=== PATIENT | male | born 1960 | race Caucasian/White ===

== ENCOUNTER 2021-04-08 01:13 | Inpatient (IN) ==
[2021-04-08] MEDS ORDERED: dexAMETHasone**PF** 10 MG/ML VIAL IV ONE (01:26)
[2021-04-08] MEDS ORDERED: SODIUM CHLORIDE 0.9% 1000ML 1,000 ML IV STA (01:26)
--- NOTE | 2021-04-08 01:51 | Emergency Department Note ---
History of Present Illness General Chief complaint: Respiratory Problems Stated complaint: O2 IS LOW,COUGH Time Seen by Provider: 04/08/21 01:19 History of Present Illness This 60-year-old presents to the ER complaining of covid sx Location: Generalized Quality: Hard to breathe Severity: Moderate Duration: Past 2 days Timing: Symptoms started 10 to 14 days ago Context: Patient's pulse ox was low and came in Modifying factors: better with rest; worse with activity Patient is unvaccinated for COVID. Patient states he has been sick for almost 2 weeks. is sick also. Home sats were in the 70s. He does not smoke. No lung disease. Patient's gave him ivermectin. Patient planes of gener alized illness cough shortness of breath. Patient is requesting I speak to his and her recommendations of treatment for him. I spoke to the Maxine at [phone]. She is requesting no remdesivir no ventilator for treatment. She wants to be called immediately if we are recommending any new treatments. She was fine with oxygen and the steroids. She informing that she gave her ivermectin. She is also requesting no COVID-vaccine. Home Medications Medication Instructions Recorded Confirmed Type buspirone 10 mg tablet 10 mg PO BID 04/08/21 04/08/21 History citalopram 40 mg tablet 40 mg PO DAILY 04/08/21 04/08/21 History Allergies Allergy/AdvReac Type Severity Reaction Status Date / Time Penicillins Allergy Severe RASH Verified 04/08/21 02:20 Past Med/Surg History Medical History Anxiety Surgical History (Updated 04/08/21 @ 01:48 by Kelsie Mckeon PA-C) No pertinent past surgical history Social History Smoking Status: Never smoker Feels Safe at Home: Yes Review of Systems A total of 10 systems reviewed and were otherwise negative Physical Exam Vital Signs Vital Signs - 24 hr 04/08/21 01:14 04/08/21 01:55 04/08/21 01:59 Temperature 36.9 C Temperature Source Oral Pulse Rate 73 Pulse Rate [Finger] 71 Respiratory Rate 16 Respiratory Effort / Characteristics Non-Labored Spontaneous Non-Labored Spontaneous Respiratory Depth Normal Normal Respiratory Pattern Regular Blood Pressure 110/65 Blood Pressure Mean 80 Blood Pressure Position Sitting Pulse Oximetry 84 L 97 Oxygen Delivery Method Room Air Nasal Cannula Oxygen Flow Rate 2 Sepsis Recent Fever Within 48 Hours No Sepsis New/Unexplained Change in Mental Status N/A Sepsis Action Taken by Nursing No Action Required Oxygen Flow Rate - Titration Pulse Oximetry Post Tiitration 04/08/21 02:00 Temperature Temperature Source Pulse Rate Pulse Rate [Finger] Respiratory Rate Respiratory Effort / Characteristics Respiratory Depth Respiratory Pattern Blood Pressure Blood Pressure Mean Blood Pressure Position Pulse Oximetry 84 L Oxygen Delivery Method Room Air Nasal Cannula Oxygen Flow Rate 0 Sepsis Recent Fever Within 48 Hours Sepsis New/Unexplained Change in Mental Status Sepsis Action Taken by Nursing Oxygen Flow Rate - Titration 2 Pulse Oximetry Post Tiitration 99 VITALS: Vitals are noted on the nurse's note and reviewed by myself. Vital signs pulse ox 84% on room air which improved on 3 L of nasal cannula to the mid 90s GENERAL: White male coughing appears short of breath, SKIN: The skin was without rashes, erythema, edema, or bruising. There is no tenting of the skin. Capillary reflex less than 2 seconds. HEAD: Normocephalic atraumatic. EARS: External auditory canals clear, EYES: Pupils equal round and reactive to light and accommodation. Conjunctivae without injection, sclerae without icterus. Extraocular movements intact. NOSE: Patent, turbinates without inflammation or discharge. MOUTH: Mucous membranes moist. Pharynx without erythema or exudate. Uvula midline. Airway patent. Tongue does not deviate. NECK: Supple without nuchal rigidity. No lymphadenopathy. No thyromegaly. Cervical spine is nontender. No JVD. HEART: Regular rate and rhythm . LUNGS: Mild diffuse end expiratory wheezes, w/o or rhonchi. No retractions or accessory muscle use. ABDOMEN: Positive bowel sounds x 4. Normal tympanic percussion. Soft, nontender, without masses or organomegaly. Rojas sign negative. No guarding or rebound tenderness. No CVA tenderness MUSCULOSKELETAL: No muscle atrophy, erythema, or edema noted. NEURO: Patient was alert and oriented to person place and time. Normal sensation to light and sharp touch. No focal neurological deficits. Course Administered Medications Discontinued Medications Dexamethasone Sodium Phosphate (DexamethasonePf 10 Mg/Ml Vial) 6 mg IV NOW ONE Stop: 04/08/21 01:27 Last Admin: 04/08/21 01:54 Dose: 6 mg Documented by: [id number] Sodium Chloride (Nss 1000ml) 1,000 mls @ 999 mls/hr IV .Q1H1M STA Stop: 04/08/21 02:26 Last Admin: 04/08/21 01:54 Dose: 999 mls/hr Documented by: [id number] Medical Decision Making Medical Records Attestation: I reviewed the patient's medical records. Home Medications Current Medication List: was personally reviewed by me Laboratory Data Attestation: I reviewed the patient's lab results. Result diagrams: 04/08/21 01:48 04/08/21 01:48 Lab Results 04/08/21 04/08/21 04/08/21 Range/Units 01:30 01:48 01:48 WBC 7.93 (4.8-10.8) K/uL RBC 4.11 L (4.7-6.1) M/uL Hgb 13.4 L (14.0-18.0) g/dL POC Hgb (14.0-18.0) g/dl Hct 38.1 L (42-52) % POC Hct (42-52) % MCV 92.7 (80-100) fL MCH 32.6 (25-34) pg MCHC 35.2 (32-36) g/dL RDW Std Deviation 41.3 (36.4-46.3) fL RDW Coeff of Wyatt 12.1 (11.5-14.5) % Plt Count 264 (130-400) K/uL MPV 9.4 (7.4-10.4) fL Immature Gran % (Auto) 0.4 % Neut % (Auto) 72.0 % Lymph % (Auto) 14.8 % [place] % (Auto) 12.1 % Eos % (Auto) 0.1 % Baso % (Auto) 0.6 % Neut # (Auto) 5.71 (1.4-6.5) K/uL Lymph # (Auto) 1.17 L (1.2-3.4) K/uL [place] # (Auto) 0.96 H (0.11-0.59) K/uL Eos # (Auto) 0.01 (0-0.5) K/uL Baso # (Auto) 0.05 (0-0.2) K/uL Immature Gran # (Auto) 0.03 H (0.00-0.02) K/uL PT (9.0-12.0) Seconds INR (0.9-1.1) APTT (21.0-31.0) Seconds PTT Ratio POC pH (7.35-7.45) POC pCO2 (35-46) mmHg POC pO2 (80-95) mmHg POC HCO3 (19-24) ruben/L POC Total CO2 (24-31) mmol/L POC Base Excess (-9-1.8) ruben/L POC ABG O2 Sat (90-95) % POC Sodium (135-144) mmol/L Sodium 130 L (136-145) mmol/L POC Potassium (3.3-5.0) mmol/L Potassium 3.6 (3.5-5.1) mmol/L Chloride 95 L (98-107) mmol/L Carbon Dioxide 26 (21-32) mmol/L Anion Gap 9 (3-11) BUN 7 (6-23) mg/dl Creatinine 0.52 L (0.6-1.4) mg/dl Est Cr Clr Drug Dosing 174.6 ml/min Est GFR ( Amer) 132.5 ml/min Est GFR (Non-Af Amer) 114.3 ml/min BUN/Creatinine Ratio 13.5 (10-20) Glucose 127 H (70-99) mg/dl Lactate (0.4-2.0) mmol/L Calcium 8.3 L (8.5-10.1) mg/dl Total Bilirubin 0.9 (0.2-1.0) mg/dl AST 52 H (13-39) U/L ALT 44 (7-52) U/L Alkaline Phosphatase 45 (34-104) U/L Total Protein 7.0 (6.0-8.3) gm/dl Albumin 3.2 L (3.4-5.0) gm/dl Globulin 3.8 (2.5-4.0) gm/dl Albumin/Globulin Ratio 0.8 L (0.9-2) SARS-CoV-2 (PCR) POSITIVE A* (Negative) Influenza Type A (PCR) Negative (Neg) Influenza Type B (PCR) Negative (Neg) RSV (RT-PCR) Negative (Neg) 04/08/21 04/08/21 04/08/21 Range/Units 01:48 01:48 01:55 WBC (4.8-10.8) K/uL RBC (4.7-6.1) M/uL Hgb (14.0-18.0) g/dL POC Hgb 12.6 L (14.0-18.0) g/dl Hct (42-52) % POC Hct 37 L (42-52) % MCV (80-100) fL MCH (25-34) pg MCHC (32-36) g/dL RDW Std Deviation (36.4-46.3) fL RDW Coeff of Wyatt (11.5-14.5) % Plt Count (130-400) K/uL MPV (7.4-10.4) fL Immature Gran % (Auto) % Neut % (Auto) % Lymph % (Auto) % [place] % (Auto) % Eos % (Auto) % Baso % (Auto) % Neut # (Auto) (1.4-6.5) K/uL Lymph # (Auto) (1.2-3.4) K/uL [place] # (Auto) (0.11-0.59) K/uL Eos # (Auto) (0-0.5) K/uL Baso # (Auto) (0-0.2) K/uL Immature Gran # (Auto) (0.00-0.02) K/uL PT 11.8 (9.0-12.0) Seconds INR 1.2 H (0.9-1.1) APTT 33.1 H (21.0-31.0) Seconds PTT Ratio 1.3 POC pH 7.54 H* (7.35-7.45) POC pCO2 32 L (35-46) mmHg POC pO2 85 (80-95) mmHg POC HCO3 27 H (19-24) ruben/L POC Total CO2 28 (24-31) mmol/L POC Base Excess 4.0 H (-9-1.8) ruben/L POC ABG O2 Sat 98.0 H (90-95) % POC Sodium 130 L (135-144) mmol/L Sodium (136-145) mmol/L POC Potassium 3.6 (3.3-5.0) mmol/L Potassium (3.5-5.1) mmol/L Chloride (98-107) mmol/L Carbon Dioxide (21-32) mmol/L Anion Gap (3-11) BUN (6-23) mg/dl Creatinine (0.6-1.4) mg/dl Est Cr Clr Drug Dosing ml/min Est GFR ( Amer) ml/min Est GFR (Non-Af Amer) ml/min BUN/Creatinine Ratio (10-20) Glucose (70-99) mg/dl Lactate 0.7 (0.4-2.0) mmol/L Calcium (8.5-10.1) mg/dl Total Bilirubin (0.2-1.0) mg/dl AST (13-39) U/L ALT (7-52) U/L Alkaline Phosphatase (34-104) U/L Total Protein (6.0-8.3) gm/dl Albumin (3.4-5.0) gm/dl Globulin (2.5-4.0) gm/dl Albumin/Globulin Ratio (0.9-2) SARS-CoV-2 (PCR) (Negative) Influenza Type A (PCR) (Neg) Influenza Type B (PCR) (Neg) RSV (RT-PCR) (Neg) Imaging Data Attestation: I personally reviewed and interpreted this imaging study as follows: MDM Narrative Prior records/ancillary studies reviewed. Triage Nursing notes reviewed. Additional history obtained from nursing and . The patient's history was concerning for cold symptoms Differential diagnosis: Etiologies such as viral syndrome, pharyngitis, Covid, sepsis, bacteremia, bronchitis, allergies, otitis, pneumonia, influenza, as well as others were entertained. ER treatment provided: IV fluids, Decadron. gave ivermectin. is refusing remdesivir and ventilator and COVID- vaccine. On reassessment the patient felt better. Diagnostics interpreted by me: The labs revealed positive COVID ABG was reviewed Imaging studies: Chest x-ray concern for multifocal pneumonia with positive COVID per my i nterpretation Consultation: A consultation was placed with hospitalist. Case was reviewed and informed of the 's wishes. Medicine will evaluate for admission. This appears to be consistent with COVID he was hypoxic. Patient was placed on oxygen and improved. He was given steroids. Patient and are declining any other current treatment options. The gave the patient ivermectin. She did inform me of this. I notified the hospitalist of this. Medicine will evaluate. Patient will be admitted. By the evaluation outlined above emergent etiologies such as otitis, meningitis, urinary tract infection, sepsis, bacteremia, as well as others were deemed relatively unlikely. The pt informed about the findings as listed above. All questions were answered and pleased with the treatment. The chart was completed utilizing In[employer] Speech voice recognition software. Grammatical errors, random word insertions, pronoun errors, and incomplete sentences are an occassional consequence of this system due to software limitations, ambient noise, and hardware issues. Any formal questions or concerns about the content, text, or information contained within the body of this dictation should be directly addressed to the physician restaurant assistant for clarification. Impression & Plan COVID-19, Hypoxemia Discharge Plan Visit Data Chief Complaint: Respiratory Problems Stated Complaint: O2 IS LOW,COUGH ED Provider: Carla Corral ED Midlevel Provider: Kelsie Mckeon Discharge Problem: COVID-19, Hypoxemia Patient Disposition: Admitted As Inpatient Condition: Fair Forms Stand Alone Forms: My [facility] - It's what's in store Prescriptions Prescriptions: No Action citalopram 40 mg tablet 40 mg PO DAILY RF: 0 buspirone 10 mg tablet 10 mg PO BID RF: 0 Referrals Referrals: Carroll Wyatt MD [Primary Care Provider] -
[2021-04-08 02:02] LABS: Hematocrit (blood only) 38.1 % (42-52); Hemoglobin 13.4 g/dL (14.0-18.0); Mean Corpuscular Hemoglobin 32.6 pg (25-34); Mean Corpuscular Hgb Conc 35.2 g/dL (32-36); Mean Corpuscular Volume 92.7 fL (80-100); Mean Platelet Volume 9.4 fL (7.4-10.4); Platelet Count 264 K/uL (130-400); RDW Coefficient of Variation 12.1 % (11.5-14.5); RDW Standard Deviation 41.3 fL (36.4-46.3); Red Blood Count 4.11 M/uL (4.7-6.1); White Blood Count 7.93 K/uL (4.8-10.8)
[2021-04-08 02:08] LABS: iSTAT Arterial Blood Gas HCO3 27 meg/L (19-24); iSTAT Arterial Blood Gas pCO2 32 mmHg (35-46); iSTAT Arterial Blood Gas pH 7.54 (7.35-7.45); iSTAT Arterial Blood Gas pO2 85 mmHg (80-95); iSTAT Carbon Dioxide 28 mmol/L (24-31); iSTAT Hematocrit 37 % (42-52); iSTAT Hemoglobin 12.6 g/dl (14.0-18.0); iSTAT Potassium 3.6 mmol/L (3.3-5.0); iSTAT Sodium 130 mmol/L (135-144)
[2021-04-08 02:19] LABS: INR 1.2 (0.9-1.1); Partial Thromboplastin Ratio 1.3; Partial Thromboplastin Time 33.1 Seconds (21.0-31.0); Prothrombin Time 11.8 Seconds (9.0-12.0)
[2021-04-08 02:22] LABS: Basophils # (auto) 0.05 K/uL (0-0.2); Basophils % (auto) 0.6 %; Eosinophils # (auto) 0.01 K/uL (0-0.5); Eosinophils % (auto) 0.1 %; Immature Granulocytes # (auto) 0.03 K/uL (0.00-0.02); Immature Granulocytes % (auto) 0.4 %; Lymphocytes # (auto) 1.17 K/uL (1.2-3.4); Lymphocytes % (auto) 14.8 %; Monocytes # (auto) 0.96 K/uL (0.11-0.59); Monocytes % (auto) 12.1 %; Neutrophils # (auto) 5.71 K/uL (1.4-6.5)
[2021-04-08 02:27] LABS: Albumin Globulin Ratio 0.8 (0.9-2); Albumin Level 3.2 gm/dl (3.4-5.0); BUN Creatinine Ratio 13.5 (10-20); Bilirubin,Total 0.9 mg/dl (0.2-1.0); Calcium 8.3 mg/dl (8.5-10.1); Creatinine Clr Calc Pharmacy 174.6 ml/min; Est GFR (African American) 132.5 ml/min; Est GFR (Non-African American) 114.3 ml/min; Globulin 3.8 gm/dl (2.5-4.0); Potassium 3.6 mmol/L (3.5-5.1)
[2021-04-08 02:28] LABS: Influenza A virus by PCR Negative (Neg); Influenza B virus by PCR Negative (Neg); RSV by PCR Negative (Neg)
[2021-04-08 02:32] LABS: SARS CoV2 RNA(COVID-19) InHosp POSITIVE (Negative)
[2021-04-08 02:55] LABS: Troponin I 0.07 ng/ml (0-0.04)
--- NOTE | 2021-04-08 04:59 | History and Physical Report ---
DATE OF ADMISSION: 04/08/2021. CHIEF COMPLAINT: Shortness of breath. HISTORY OF PRESENT ILLNESS: This is 60-year-old male with a past medical history significant for type 2 diabetes, not on any medication; hyperlipidemia, not on any medications; gastroesophageal reflux disease; obesity; sleep apnea, presents with shortness of breath and cough. The patient says he was exposed to COVID on and on 03/24/2021 he started to develop symptoms. Initially, the symptoms were not bad .. Last time he had fever was last Tuesday and was getting more progressively short of breath and today he took the dog out for a walk and when he came back, he was very short of breath and checked his oxygen, it was 77%, and later is was fluctuating from 90 to low 80s, which prompted him to come to the ER. Tonight, he took a dose of Ivermectin. The patient's does not want to give any COVID vaccine and does not want to give him any remdesivir and the patient agrees for that, agree for steroids. The patient is more than 10 days from the start of his symptoms. Complains of cough and shortness of breath. Denies any body aches. No loss of appetite. No headaches, no nausea, no vomiting, no abdominal pain, no diarrhea. Ambulating fine. No chest pain, no runny nose, no sore throat. Currently, resting comfortably. His oxygen was 84% when he came in. With oxygen supplementation, he is resting comfortably and hemodynamically stable. ALLERGIES: PENICILLIN. PAST MEDICAL HISTORY: As mentioned above. PAST SURGICAL HISTORY: Colonoscopy, cystoscopy, EGDs, uvula surgery for sleep apnea, knee arthroscopy, nasal polyp, excision of cataracts, repair of inguinal hernia, repair of nasal septum, right shoulder arthroscopy, VSD repair at [facility]. MEDICATIONS: The patient is on buspirone 10 mg p.o. daily, citalopram 40 mg p.o. daily. FAMILY HISTORY: Significant for mother has diabetes, father has COPD. SOCIAL HISTORY: , no smoking, alcohol rare, no drug use. REVIEW OF SYSTEMS: As per HPI. Rest of the review of systems is negative. PHYSICAL EXAMINATION: GENERAL: The patient is of moderate build, not in acute distress. VITAL SIGNS: Temperature 36.9, pulse 71, respiratory rate 16, blood pressure 110/65, oxygen 84% on room air. HEENT: Pupils equal, round, reactive to light. Oral mucosa moist. NECK: No JVD, no neck masses. CARDIOVASCULAR: S1 and S2 heard. Regular rate and rhythm. No murmur, no gallop. RESPIRATORY SYSTEM: Normal AP diameter. No accessory muscle use. No wheezing, no crackles. ABDOMEN: Soft, bowel sounds present, nontender, no distention. CENTRAL NERVOUS SYSTEM: Cranial nerves II-XII grossly intact, nonfocal. EXTREMITIES: No edema, no erythema. LABORATORY DATA: WBC 7.9, hemoglobin 13.4, hematocrit 38.1, platelets 264. PT 11.8, INR 1.2, APTT 33.1, pH of 7.5, pCO2 of 32, pO2 of 85, bicarbonate 27, oxygen 98%. Sodium 130, potassium 3.6, chloride 95, bicarbonate 26, BUN 7, creatinine 0.5, serum glucose 127. Lactate 0.7, calcium 8.3, total bilirubin 0.9, AST 52, ALT 42, alkaline phosphatase 45. Troponin I less than 0.07. SARS-CoV-2 PCR positive. Influenza A and B negative. RSV PCR negative. IMAGING DATA: Chest x-ray, bilateral COVID pneumonia seen. EKG: Normal sinus rhythm at a rate of 71, no significant change was found. ASSESSMENT AND PLAN: This is a 60-year-old male who presents with COVID pneumonia. 1. COVID pneumonia: Symptoms started on 03/24/2021. Currently, requiring oxygen. The patient is out of 10 days to give remdesivir, but anyway, the patient and the patient's do not want patient to give any remdesivir or to be put on ventilator. Will continue IV steroids, inhalers and nebs p.r.n. oxygen supplementation and closely monitor in the med tele. Follow the CRP levels. 2. Mild elevation of troponin: Possibly demand ischemia. Follow the serial enzymes. If needed, will consider consulting Cardiology. 3. History of diabetes: Currently not on any medication. Follow HbA1c level. Placed on insulin sliding scale. The patient is getting Decadron. 4. Hyponatremia: Possibly mild dehydration. Getting gentle fluids. Follow the repeat labs. 5. History of anxiety and depression: Continue buspirone and citalopram. 6. History of sleep apnea: Status post uvula surgery long time back. Not on cpap or oxygen as per . 7. Hyperlipidemia: Not on any medication currently. 8. Deep venous thrombosis prophylaxis: Lovenox. DISPOSITION: Closely monitor in the med tele. PT/OT prior to discharge. Social service to help with discharge planning. Job ID: [id number] [email or web address]
[2021-04-08] MEDS ORDERED: SODIUM CHLORIDE 0.9% 1000ML 1,000 ML IV SCH (07:05)
[2021-04-08] MEDS ORDERED: LEVALBUTEROL HCL 1.25 MG/3 ML NEB NEB PRN (07:05)
[2021-04-08] MEDS ORDERED: NITROGLYCERIN SL 0.4 MG/TAB TAB SL PRN (07:05)
[2021-04-08] MEDS ORDERED: ALBUTEROL HFA 8 GM INHALER INH PRN (07:05)
[2021-04-08] MEDS ORDERED: ACETAMINOPHEN 325 MG TAB PO PRN (07:05)
--- NOTE | 2021-04-08 07:29 | XRay Report ---
XR chest 1V portable CLINICAL HISTORY: Fever. Shortness of breath COMPARISON STUDY: No previous studies for comparison. TECHNIQUE: 1 view of the chest FINDINGS: Single frontal view of the chest demonstrates the heart to be enlarged. Patchy interstitial and alveo lar opacities are present bilaterally. The findings are most characteristic of a viral type pneumonit is. Covid 19 pneumonia should be excluded. There is no evidence for pleural effusion. There is no ne dence for vascular congestion. There is no acute osseous pathology. IMPRESSION: Patchy interstitial and alveolar opacities bilaterally characteristic of a viral type pne umonitis and probable early Covid 19 pneumonia. ACT 112: Negative or not required by law. Electronically signed by: Jhonny Newberry M.D. 04/08/2021 7:28 AM
--- NOTE | 2021-04-08 08:20 | Electrocardiogram Report ---
Test Reason : Blood Pressure : / mmHG Vent. Rate : 071 BPM Atrial Rate : 071 BPM P-R Int : 140 ms QRS Dur : 086 ms QT Int : 404 ms P-R-T Axes : 045 009 041 degrees QTc Int : 439 ms Normal sinus rhythm Normal ECG When compared with ECG of 27-AUG-2013 09:41, No significant change Confirmed by Jose Oakes ([id number]) on 04/08/2021 8:20:06 AM Referred By: REFERRED SELF Confirmed By:Jose Oakes
--- NOTE | 2021-04-08 08:28 | Electrocardiogram Report ---
Test Reason : Blood Pressure : / mmHG Vent. Rate : 071 BPM Atrial Rate : 071 BPM P-R Int : 160 ms QRS Dur : 086 ms QT Int : 406 ms P-R-T Axes : 059 006 025 degrees QTc Int : 441 ms Normal sinus rhythm Normal ECG When compared with ECG of 08-APR-2021 01:29, No significant change was found Confirmed by Jose Oakes ([id number]) on 04/08/2021 8:27:17 AM Referred By: REFERRED SELF Confirmed By:Jose Oakes
[2021-04-08 08:43] LABS: Basophils # (auto) 0.04 K/uL (0-0.2); Basophils % (auto) 0.5 %; Hematocrit (blood only) 38.4 % (42-52); Hemoglobin 13.4 g/dL (14.0-18.0); Immature Granulocytes # (auto) 0.02 K/uL (0.00-0.02); Immature Granulocytes % (auto) 0.3 %; Lymphocytes # (auto) 0.79 K/uL (1.2-3.4); Lymphocytes % (auto) 10.2 %; Mean Corpuscular Hemoglobin 32.4 pg (25-34); Mean Corpuscular Hgb Conc 34.9 g/dL (32-36); Mean Corpuscular Volume 92.8 fL (80-100); Mean Platelet Volume 9.6 fL (7.4-10.4); Monocytes # (auto) 0.54 K/uL (0.11-0.59); Monocytes % (auto) 6.9 %; Neutrophils # (auto) 6.38 K/uL (1.4-6.5); Neutrophils % (auto) 82.1 %; Platelet Count 258 K/uL (130-400); RDW Coefficient of Variation 12.2 % (11.5-14.5); RDW Standard Deviation 41.2 fL (36.4-46.3); Red Blood Count 4.14 M/uL (4.7-6.1); White Blood Count 7.77 K/uL (4.8-10.8)
[2021-04-08] MEDS: busPIRone 5 MG TAB PO SCH ×2 (09:02→20:50)
[2021-04-08] MEDS: CITALOPRAM 40 MG TAB PO SCH (09:02)
[2021-04-08] MEDS: ENOXAPARIN INJ 40 MG/0.4 ML SYR SQ SCH (09:03)
[2021-04-08] MEDS: FLUTICASONE FUROATE 100MCG 14 PUFFS/INHALER INH SCH ×2 (09:03→20:50)
[2021-04-08 09:20] LABS: Creatinine Clr Calc Pharmacy 181.6 ml/min; Est GFR (African American) 134.6 ml/min; Est GFR (Non-African American) 116.1 ml/min; Estimated Average Glucose 137 mg/dl; Hemoglobin A1C 6.4 % (4.5-5.6); Magnesium 2.2 mg/dl (1.7-2.4); Potassium 4.1 mmol/L (3.5-5.1)
[2021-04-08 09:31] LABS: Troponin I 0.05 ng/ml (0-0.04)
[2021-04-08] MEDS: INSULIN ASPART PER UNIT SC SCH ×4 (09:42→20:50)
[2021-04-08] MEDS: dexAMETHasone 6 MG in SYRINGE 0 ML IV SCH (11:41)
--- NOTE | 2021-04-08 23:44 | Communication Note ---
Date of Service: April 08, 2021 Pt was seen and examined. Lying in bed with no acute distress. Currently on 2L nasal canula. CXR showed patchy interstitial and alveolar opacities bilaterally characteristic of a viral type pneumonitis and probable early Covid 19 pneumonia. Continue Dexamethasone incentive spirometry and flutter maxwell. Patient and family declined remdesivir and he does not meet criteria as well due to onset of symptoms. Continue osygen supplement. monitor closely. MD Shyla
[2021-04-09] MEDS: ENOXAPARIN INJ 40 MG/0.4 ML SYR SQ SCH (07:52)
[2021-04-09] MEDS: CITALOPRAM 40 MG TAB PO SCH (07:53)
[2021-04-09] MEDS: busPIRone 5 MG TAB PO SCH ×2 (07:53→19:20)
[2021-04-09] MEDS: FLUTICASONE FUROATE 100MCG 14 PUFFS/INHALER INH SCH ×2 (07:53→19:17)
[2021-04-09] MEDS: INSULIN ASPART PER UNIT SC SCH ×4 (08:11→20:32)
[2021-04-09] MEDS: dexAMETHasone 6 MG in SYRINGE 0 ML IV SCH (11:04)
--- NOTE | 2021-04-09 14:40 | Electrocardiogram Report ---
Test Reason : Blood Pressure : / mmHG Vent. Rate : 063 BPM Atrial Rate : 063 BPM P-R Int : 154 ms QRS Dur : 096 ms QT Int : 432 ms P-R-T Axes : 042 009 029 degrees QTc Int : 442 ms Normal sinus rhythm Normal ECG When compared with ECG of 08-APR-2021 03:11, No significant change was found Confirmed by Jose Oakes ([id number]) on 04/09/2021 2:40:31 PM Referred By: REFERRED SELF Confirmed By:Jose Oakes
--- NOTE | 2021-04-09 23:15 | Hospitalist Progress Note ---
Date of Service April 09, 2021 Assessment & Plan (1) COVID-19: Plan: Present on admission with SOB and cough Covid 19 pneumonia Testing positive for COVID 19 Unvaccinated CXR showed Patchy interstitial and alveolar opacities bilaterally characteristic of a viral type pneumonitis and probable early Covid 19 pneumonia. IV dexametasone started Did not meet criteria for Remdesivir due to symtoms onset since new year theodore and pt did not want it as well Continue IV Dexamethasome and oxygen supplement Continue Incentive spirometry and flutter valve Will monitor inflammatory marker Continue monitor closely Mild elevation of troponin Possibly demand ischemia due to hypoxia from covid 19 Troponin on admission 0.07 then trending down to 0.05 denies any chest pain EKG showed no acute intracranial abnormality History of diabetes A1c 6.4 on 04/10/21 Not on any diabetes med. Continue insulin sliding scale Hyponatremia: Na on admission 130, then improved to 133 received IVF Continue monitor BMP History of anxiety and depression: Continue buspirone and citalopram. History of sleep apnea: Status post uvula surgery long time back. Not on cpap or oxygen as per . Deep venous thrombosis prophylaxis: Lovenox. Admission and Anticipated Discharge Date Admission Date: April 08, 2021 Subjective Pt was seen and examined for SOB due to COVID 19 Lying in bed with no acute distress Pt said that his breathing is much better Denies any chest pain,palpitation,dizziness and SOB Review of Systems Review of Systems: All systems reviewed & are unremarkable except as noted in Subjective Physical Exam Physical Exam: General- No acute distress Head- atraumatic Eyes- PERRL, EOMI, ENT- oropharynx clear Neck- supple, no JVD Lungs- +Diminished BS Heart- regular rhythm; no murmur Abdomen- normal bowel sounds, soft, nontender Extremities- no calf tenderness Neuro- alert, oriented x 3; PERRL, EOMI; no facial palsy; no dysarthria Skin- warm & dry Results & Data Results & Data ([facility]) Vital Signs (Past 12 Hours) Vital Signs Temp Pulse Resp BP BP Pulse Ox 04/09/21 23:06 36.6 C 81 20 163/85 H 92 04/09/21 19:10 36.8 C 53 L 20 169/75 H 94 04/09/21 15:17 36.8 C 53 L 20 162/76 H 95
[2021-04-10] MEDS: INSULIN ASPART PER UNIT SC SCH ×4 (09:16→20:04)
[2021-04-10] MEDS: FLUTICASONE FUROATE 100MCG 14 PUFFS/INHALER INH SCH ×2 (09:27→19:33)
[2021-04-10] MEDS: CITALOPRAM 40 MG TAB PO SCH (09:27)
[2021-04-10] MEDS: busPIRone 5 MG TAB PO SCH ×2 (09:27→19:54)
[2021-04-10] MEDS: ENOXAPARIN INJ 40 MG/0.4 ML SYR SQ SCH (09:28)
[2021-04-10 11:22] LABS: Hematocrit (blood only) 37.5 % (42-52); Hemoglobin 12.9 g/dL (14.0-18.0); Mean Corpuscular Hemoglobin 32.1 pg (25-34); Mean Corpuscular Hgb Conc 34.4 g/dL (32-36); Mean Corpuscular Volume 93.3 fL (80-100); Mean Platelet Volume 9.5 fL (7.4-10.4); Platelet Count 368 K/uL (130-400); RDW Coefficient of Variation 12.3 % (11.5-14.5); RDW Standard Deviation 42.1 fL (36.4-46.3); Red Blood Count 4.02 M/uL (4.7-6.1); White Blood Count 13.48 K/uL (4.8-10.8)
[2021-04-10 11:50] LABS: BUN Creatinine Ratio 26.8 (10-20); Calcium 8.3 mg/dl (8.5-10.1); Creatinine Clr Calc Pharmacy 162.2 ml/min; Est GFR (African American) 128.5 ml/min; Est GFR (Non-African American) 110.9 ml/min; Potassium 4.1 mmol/L (3.5-5.1)
[2021-04-10] MEDS: dexAMETHasone 6 MG in SYRINGE 0 ML IV SCH (12:05)
[2021-04-10] MEDS: CHOLECALCIFEROL 1,000 UNITS 25 MCG TAB PO SCH (14:34)
[2021-04-10] MEDS ORDERED: Nursing to Pharmacy Communication SCH (17:30)
--- NOTE | 2021-04-10 23:50 | Hospitalist Progress Note ---
Date of Service April 10, 2021 Assessment & Plan (1) COVID-19: Plan: Present on admission with SOB and cough Covid 19 pneumonia Testing positive for COVID 19 Unvaccinated CXR showed Patchy interstitial and alveolar opacities bilaterally characteristic of a viral type pneumonitis and probable early Covid 19 pneumonia. IV dexametasone started Did not meet criteria for Remdesivir due to symtoms onset since new year theodore and pt did not want it as well Continue IV Dexamethasome and oxygen supplement Continue Incentive spirometry and flutter valve inflammatory marker CRP trending down from 22 to 5 Will obdulio off oxygen supplement Consider 2 step exercise on discharge Continue monitor closely Mild elevation of troponin Possibly demand ischemia due to hypoxia from covid 19 Troponin on admission 0.07 then trending down to 0.05 denies any chest pain EKG showed no acute intracranial abnormality History of diabetes A1c 6.4 on 04/10/21 Not on any diabetes med. Continue insulin sliding scale Hyponatremia: Na on admission 130, then improved to 135 today received IVF Continue monitor BMP History of anxiety and depression: Continue buspirone and citalopram. History of sleep apnea: Status post uvula surgery long time back. Not on cpap or oxygen as per . Deep venous thrombosis prophylaxis: Lovenox. Admission and Anticipated Discharge Date Admission Date: April 08, 2021 Subjective Pt was seen and examined for SOB due to COVID 19 Lying in bed with no acute distress Pt said that his breathing is much better He is only on 1L [place] and oxygen sat above 93% Denies any chest pain,palpitation,dizziness and SOB Review of Systems Review of Systems: All systems reviewed & are unremarkable except as noted in Subjective Physical Exam Physical Exam: General- No acute distress Head- atraumatic Eyes- PERRL, EOMI, ENT- oropharynx clear Neck- supple, no JVD Lungs- +Diminished BS Heart- regular rhythm; no murmur Abdomen- normal bowel sounds, soft, nontender Extremities- no calf tenderness Neuro- alert, oriented x 3; PERRL, EOMI; no facial palsy; no dysarthria Skin- warm & dry Results & Data Results & Data ([facility]) Vital Signs (Past 12 Hours) Vital Signs Temp Pulse Pulse Resp BP Pulse Ox 04/10/21 23:34 44 L 04/10/21 23:04 37 C 47 L 20 158/73 H 95 04/10/21 18:41 37.1 C 49 L 18 168/70 H 94 04/10/21 16:00 48 L 04/10/21 14:59 36.9 C 51 L 18 166/71 H 95
[2021-04-11] MEDS: busPIRone 5 MG TAB PO SCH ×2 (08:13→18:44)
[2021-04-11] MEDS: FLUTICASONE FUROATE 100MCG 14 PUFFS/INHALER INH SCH ×2 (08:13→18:44)
[2021-04-11] MEDS: ENOXAPARIN INJ 40 MG/0.4 ML SYR SQ SCH (08:13)
[2021-04-11] MEDS: CITALOPRAM 40 MG TAB PO SCH (08:13)
[2021-04-11] MEDS: CHOLECALCIFEROL 1,000 UNITS 25 MCG TAB PO SCH (08:13)
[2021-04-11] MEDS: INSULIN ASPART PER UNIT SC SCH ×4 (08:17→20:48)
[2021-04-11] MEDS: dexAMETHasone 6 MG in SYRINGE 0 ML IV SCH (11:15)
--- NOTE | 2021-04-12 00:15 | Hospitalist Progress Note ---
Date of Service April 11, 2021 Assessment & Plan (1) COVID-19: Plan: Present on admission with SOB and cough Covid 19 pneumonia Testing positive for COVID 19 Unvaccinated CXR showed Patchy interstitial and alveolar opacities bilaterally characteristic of a viral type pneumonitis and probable early Covid 19 pneumonia. IV dexametasone started Did not meet criteria for Remdesivir due to symtoms onset since new year theodore and pt did not want it as well Continue IV Dexamethasome and oxygen supplement Continue Incentive spirometry and flutter valve inflammatory marker CRP trending down from 22 to 5 Will obdulio off oxygen supplement Consider 2 step exercise on discharge Continue monitor closely Mild elevation of troponin Possibly demand ischemia due to hypoxia from covid 19 Troponin on admission 0.07 then trending down to 0.05 denies any chest pain EKG showed no acute intracranial abnormality History of diabetes A1c 6.4 on 04/10/21 Not on any diabetes med. Continue insulin sliding scale Hyponatremia: Na on admission 130, then improved to 135 today received IVF Continue monitor BMP History of anxiety and depression: Continue buspirone and citalopram. History of sleep apnea: Status post uvula surgery long time back. Not on cpap or oxygen as per . Deep venous thrombosis prophylaxis: Lovenox. Admission and Anticipated Discharge Date Admission Date: April 08, 2021 Subjective Pt was seen and examined for SOB due to COVID 19 Lying in bed with no acute distress Pt said that his breathing is much better Early today his oxygen dropped when trying to walk to the bathroom Denies any chest pain,palpitation,dizziness and SOB Review of Systems Review of Systems: All systems reviewed & are unremarkable except as noted in Subjective Physical Exam Physical Exam: General- No acute distress Head- atraumatic Eyes- PERRL, EOMI, ENT- oropharynx clear Neck- supple, no JVD Lungs- +Diminished BS Heart- regular rhythm; no murmur Abdomen- normal bowel sounds, soft, nontender Extremities- no calf tenderness Neuro- alert, oriented x 3; PERRL, EOMI; no facial palsy; no dysarthria Skin- warm & dry Results & Data Results & Data ([facility]) Vital Signs (Past 12 Hours) Vital Signs Temp Pulse Pulse Resp BP BP Pulse Ox 04/12/21 00:06 46 L 04/11/21 23:08 36.7 C 48 L 16 154/70 H 92 04/11/21 19:26 36.6 C 60 18 146/70 H 91 04/11/21 16:23 36.8 C 50 L 19 157/76 H 94 04/11/21 14:19 62 04/11/21 12:18 87 L
[2021-04-12] MEDS: INSULIN ASPART PER UNIT SC SCH ×2 (07:59→11:56)
[2021-04-12] MEDS: CHOLECALCIFEROL 1,000 UNITS 25 MCG TAB PO SCH (08:16)
[2021-04-12] MEDS: busPIRone 5 MG TAB PO SCH (08:16)
[2021-04-12] MEDS: CITALOPRAM 40 MG TAB PO SCH (08:16)
[2021-04-12] MEDS: ENOXAPARIN INJ 40 MG/0.4 ML SYR SQ SCH (08:16)
[2021-04-12] MEDS: FLUTICASONE FUROATE 100MCG 14 PUFFS/INHALER INH SCH (08:17)
[2021-04-12] MEDS ORDERED: FUROSEMIDE INJ 20 MG/2 ML VIAL IV ONE (08:37)
[2021-04-12] MEDS: dexAMETHasone 6 MG in SYRINGE 0 ML IV SCH (09:42)
--- NOTE | 2021-04-12 17:27 | Discharge Summary ---
Date of Service April 12, 2021 Admission HPI Per Admitting Provider CHIEF COMPLAINT: Shortness of breath. HISTORY OF PRESENT ILLNESS: This is 60-year-old male with a past medical history significant for type 2 diabetes, not on any medication; hyperlipidemia, not on any medications; gastroesophageal reflux disease; obesity; sleep apnea, presents with shortness of breath and cough. The patient says he was exposed to COVID on and on 03/24/2021 he started to develop symptoms. Initially, the symptoms were not bad .. Last time he had fever was last Tuesday and was getting more progressively short of breath and today he took the dog out for a walk and when he came back, he was very short of breath and checked his oxygen, it was 77%, and later is was fluctuating from 90 to low 80s, which prompted him to come to the ER. Tonight, he took a dose of Ivermectin. The patient's does not want to give any COVID vaccine and does not want to give him any remdesivir and the patient agrees for that, agree for steroids. The patient is more than 10 days from the start of his symptoms. Complains of cough and shortness of breath. Denies any body aches. No loss of appetite. No headaches, no nausea, no vomiting, no abdominal pain, no diarrhea. Ambulating fine. No chest pain, no runny nose, no sore throat. Currently, resting comfortably. His oxygen was 84% when he came in. With oxygen supplementation, he is resting comfortably and hemodynamically stable. Admission Exam Per Admitting Provider GENERAL: The patient is of moderate build, not in acute distress. VITAL SIGNS: Temperature 36.9, pulse 71, respiratory rate 16, blood pressure 110/65, oxygen 84% on room air. HEENT: Pupils equal, round, reactive to light. Oral mucosa moist. NECK: No JVD, no neck masses. CARDIOVASCULAR: S1 and S2 heard. Regular rate and rhythm. No murmur, no gallop. RESPIRATORY SYSTEM: Normal AP diameter. No accessory muscle use. No wheezing, no crackles. ABDOMEN: Soft, bowel sounds present, nontender, no distention. CENTRAL NERVOUS SYSTEM: Cranial nerves II-XII grossly intact, nonfocal. EXTREMITIES: No edema, no erythema. Principal Diagnosis Covid 19 pneumonia History of diabetes Hyponatremia: History of anxiety and depression: History of sleep apnea: Discharge Exam General- No acute distress Head- atraumatic Eyes- PERRL, EOMI, ENT- oropharynx clear Neck- supple, no JVD Lungs- +Diminished BS Heart- regular rhythm; no murmur Abdomen- normal bowel sounds, soft, nontender Extremities- no calf tenderness Neuro- alert, oriented x 3; PERRL, EOMI; no facial palsy; no dysarthria Skin- warm & dry Discharge Data Allergies Allergy/AdvReac Type Severity Reaction Status Date / Time Penicillins Allergy Severe RASH Verified 04/08/21 02:20 Consultations 04/08/21 02:33 ED Decision to Admit Stat Ordered Studies XR chest 1V portable CLINICAL HISTORY: Fever. Shortness of breath COMPARISON STUDY: No previous studies for comparison. TECHNIQUE: 1 view of the chest FINDINGS: Single frontal view of the chest demonstrates the heart to be enlarged. Patchy interstitial and alveolar opacities are present bilaterally. The findings are most characteristic of a viral type pneumonitis. Covid 19 pneumonia should be excluded. There is no evidence for pleural effusion. There is no evidence for vascular congestion. There is no acute osseous pathology. IMPRESSION: Patchy interstitial and alveolar opacities bilaterally characteristic of a viral type pneumonitis and probable early Covid 19 pneumonia. ACT 112: Negative or not required by law. Electronically signed by: Jhonny Newberry M.D. 04/08/2021 7:28 AM Dictated:04/08/21726 Transcribed: 04/08/21726 Hospital Course (1) COVID-19: Present on admission with SOB and cough Covid 19 pneumonia Testing positive for COVID 19 Unvaccinated CXR showed Patchy interstitial and alveolar opacities bilaterally characteristic of a viral type pneumonitis and probable early Covid 19 pneumonia. IV dexamethasone started Did not meet criteria for Remdesivir due to symptoms onset since new year theodore and pt did not want it as well Continue IV Dexamethasone and oxygen supplement Continue Incentive spirometry and flutter valve Inflammatory marker CRP trending down from 22 to 5 Pt would like to go home tonight. he does not want to stay for another night 2 step exercise done and pt requires 3L NC with ambulation and none at rest Will discharge on on dexamethasone 6mg PO daily to complete 4 more days Pt was advised to continue self proning Case discussed with and provided updates and answered all her questions Advised to seek medical attention if symptoms worsening Clinically improves Mild elevation of troponin Possibly demand ischemia due to hypoxia from covid 19 Troponin on admission 0.07 then trending down to 0.05 Denies any chest pain EKG showed no acute intracranial abnormality History of diabetes A1c 6.4 on 04/10/21 Not on any diabetes med. Continue insulin sliding scale Hyponatremia: Na on admission 130, then improved to 135 today received IVF Stable History of anxiety and depression: Continue buspirone and citalopram. History of sleep apnea: Status post uvula surgery long time back. Not on cpap or oxygen as per . Deep venous thrombosis prophylaxis: Lovenox. Disposition Discharge home today Total Time Total Time Spent Total Time Spent (In Minutes): 35 minutes Discharge Plan Discharge Items Patient Disposition: Home - Self-Care Reason For Visit: SOB Discharge Diagnosis: Covid 19 pneumonia History of diabetes Hyponatremia: History of anxiety and depression: History of sleep apnea: Condition on Discharge: Fair Activity: Resume your previous activity Non-emergency contact: Primary Care Provider Call non-emergency contact if: you have any medication questions and your symptoms worsen Follow-up/Referrals: Carroll Wyatt MD [Primary Care Provider] - Diet: Carb Consistent or DM2 Addtl Attending Provider Instructions: Follow up with your primary care provider within 1 week Continue to practice social distance and wear mask Continue oxygen supplement with 3 liter nasal canula with ambulation and exertion Continue using the incentive spirometry and flutter valve Seek medical attention if your symptoms worsening Home Isolation COVID-19 Instructions The following information about Home Isolation is from the CDC Website: https://www.cdc.gov/coronavirus/2019-ncov/hcp/ppkrlblc-cbsjuib-nwhcjq.html Stay home except to get medical care People who are mildly ill with COVID-19 are able to isolate at home during their illness. You should restrict activities outside your home, except for getting medical care. Do not go to work, school, or public areas. Avoid using public transportation, ride-sharing, or taxis. Separate yourself from other people and animals in your home People: As much as possible, you should stay in a specific room and away from other people in your home. Also, you should use a separate bathroom, if available. Animals: You should restrict contact with pets and other animals while you are sick with COVID-19, just like you would around other people. Although there have not been reports of pets or other animals becoming sick with COVID-19, it is still recommended that people sick with COVID-19 limit contact with animals until more information is known about the virus. When possible, have another member of your household care for your animals while you are sick. If you are sick with COVID-19, avoid contact with your pet, including petting, snuggling, being kissed or licked, and sharing food. If you must care for your pet or be around animals while you are sick, wash your hands before and after you interact with pets and wear a face mask. Call ahead before visiting your doctor If you have a medical appointment, call the healthcare provider and tell them that you have or may have COVID-19. This will help the healthcare providers office take steps to keep other people from getting infected or exposed. Wear a face mask You should wear a face mask when you are around other people (e.g., sharing a room or vehicle) or pets and before you enter a healthcare providers office. If you are not able to wear a face mask (for example, because it causes trouble breathing), then people who live with you should not stay in the same room with you, or they should wear a face mask if they enter your room. Cover your coughs and sneezes Cover your mouth and nose with a tissue when you cough or sneeze. Throw used tissues in a lined trash can. Immediately wash your hands with soap and water for at least 20 seconds or, if soap and water are not available, clean your hands with an alcohol-based hand director sales that contains at least 60% alcohol. Clean your hands often Wash your hands often with soap and water for at least 20 seconds, especially after blowing your nose, coughing, or sneezing; going to the bathroom; and before eating or preparing food. If soap and water are not readily available, use an alcohol-based hand director sales with at least 60% alcohol, covering all surfaces of your hands and rubbing them together until they feel dry. Soap and water are the best option if hands are visibly dirty. Avoid touching yo ur eyes, nose, and mouth with unwashed hands. Avoid sharing personal household items You should not share dishes, drinking glasses, cups, eating utensils, towels, or bedding with other people or pets in your home. After using these items, they should be washed thoroughly with soap and water. Clean all high-touch surfaces everyday High touch surfaces include counters, tabletops, doorknobs, bathroom fixtures, toilets, phones, keyboards, tablets, and bedside tables. Also, clean any surfaces that may have blood, stool, or body fluids on them. Use a household cleaning spray or wipe, according to the label instructions. Labels contain instructions for safe and effective use of the cleaning product including precautions you should take when applying the product, such as wearing gloves and making sure you have good ventilation during use of the product. Monitor your symptoms Seek prompt medical attention if your illness is worsening (e.g., difficulty breathing).Beforeseeking care, call your healthcare provider and tell them that you have, or are being evaluated for, COVID-19. Put on a face mask before you enter the facility. These steps will help the healthcare providers office to keep other people in the office or waiting room from getting infected or exposed. Ask your healthcare provider to call the local or state health department. Persons who are placed under active monitoring or facilitated self- monitoring should follow instructions provided by their local health department or occupational health professionals, as appropriate. When working with your local health department check their available hours. If you have a medical emergency and need to call 911, notify the dispatch personnel that you have, or are being evaluated for COVID-19. If possible, put on a face mask before emergency medical services arrive. Discontinuing home isolation Patients with confirmed COVID-19 should remain under home isolation precautions until the risk of secondary transmission to others is thought to be low. The decision to discontinue home isolation precautions should be made on a [id number] basis, in consultation with healthcare providers and state and local health departments. Coronavirus disease 2019 (COVID-19) is a virus that causes a respiratory illness. It is caused by a coronavirus called 2019 novel coronavirus (2019- nCoV). There are many types of coronavirus. Coronaviruses are a very common cause of bronchitis. They may sometimes cause lung infection(pneumonia). Symptoms can range from mild to severe respiratory illness. These viruses are also foundin some animals. COVID-19 was first found in people in [facility], in late 2018. In 2020, several cases of COVID-19 have been confirmed in the [place] Public health officials are working to find the source. How the virus spreads is not yet fully known. It may be spread through droplets of fluid that a person coughs or sneezes into the air. It may be spread if you touch a surface with virus on it, such as a handle or object, and then touch your mouth. What are the symptoms of COVID-19? Some people have no symptoms or mild symptoms. Symptoms may appear 2 to 14 days after contact with the virus. Symptoms can include: Fever Coughing Trouble breathing What are possible complications from COVID-19? In many cases, this virus can cause infection (pneumonia) in both lungs. In some cases, this can cause . How is COVID-19 diagnosed? Your healthcare provider will ask about your symptoms. He or she will also ask about your recent travel and contact with sick people. Testing for the virus is only done through the CDC. If yourhealthcare provider thinks you may have COVID- 19, he or she will work with your local health department and the CDC on testing. Follow all instructions from your healthcare provider. COVID-19 is diagnosed by: Nasal and throat swab. A cotton-tipped swab is wiped inside your nose or throat. This is done to check for viruses in your nasal mucus. Sputum culture. A small sample of mucus coughed from your lungs (sputum) is collected if you have a cough. It is checked for the virus. How is COVID-19 treated? There is currently no medicine to treat the virus. Treatment is done to help your body while it fights the virus. This is known as supportive care. Supportive care may include: Pain medicine. These include acetaminophen and ibuprofen. They are used to help ease pain and reduce fever. Bed rest. This helps your body fight the illness. For severe illness, you may need to stay in the hospital. Care during severe illness may include: IV (intravenous) fluids.These are given through a vein to help keep your body hydrated. Oxygen. Supplemental oxygen or ventilation with a breathing machine (ventilator) may be given. This is done to keep enough oxygen in your body. Are you at risk for COVID-19? If youve been to a place where people have been sick with this virus, you are at risk for infection. You are at risk if you: Recently traveled to an affected area Had contact with a sick person who recently traveled to this area Had contact with a person who was diagnosed with COVID-19 How can COVID-19 be prevented? There is no vaccine yet. The best prevention is to not have contact with the virus. The CDC advises that people should not travel to areas where there are COVID-19 outbreaks right now for any reason that is not urgent. To help prevent spreading the infection, wash your hands often, or use an alcohol-basedhand director sales. If you are in an area with COVID-19: Wash your hands often. Or use an alcohol-based hand director sales often. Only touch your eyes, nose, or mouth with clean hands. Dont have contact with people who are sick. Follow local instructions about being in public. For example, you may be told to not use public transport for a period of time. Stay away from markets that have live or animals. Wash your hands after touching any animals. Don't touch animals that may be sick. Dont share eating or drinking tools with sick people. Dont kiss someone who is sick. Clean surfaces often with disinfectant. If you were in an area with COVID-19 in the last 14 days: Call your healthcare provider. He or she can talk with local health staff to see what action may be needed. Follow all instructions from your provider. Take your temperature every morning and evening for at least 14 days. This is to check for fever. Keep a record of the readings. Keep watch for symptoms of the virus. Tell your provider right away if you have symptoms. If you were in an area with COVID-19 and have a fever or other symptoms: Dont panic. Keep in mind that other illnesses can cause similar symptoms. Stay away from work, school, and public places. Limit physical contact with family members. Don't kiss anyone or share eating or drinking utensils. Clean surfaces you touch with disinfectant. This is to help prevent the virus from spreading. Call your healthcare provider. Explain that you have been exposed to COVID-19 and have symptoms. Do this before going to any hospital. Wait for instructions. Keep in mind that healthcare staff may wear protective equipment such as masks, gowns, gloves, and eye protection. You may be put in a separate room. This is to prevent the possible virus from spreading. Tell the healthcare staff about recent travel. This includes local travel on public transport. Staff may need to find other people you have been in contact with. Follow all instructions the healthcare staff give you. If you have been diagnosed with COVID-19 Follow all instructions from your healthcare provider. Dont leave your home, except to get medical care. Call your healthcare providers office before going. They can prepare and give you instructions. This will help prevent the virus from spreading. Dont go to work, school, or public areas. Dont use public transport or taxis. Stay away from other people in your home. Have them wear face masks around you. Dont share household items or food. Wear a face mask if you can. This includes at home or in a medical facility. Cover your face with a tissue when you cough or sneeze. Throw the tissue away. Wash your hands. Wash your hands often. Caregivers should: Follow all instructions from healthcare staff. Wear a face mask and protective clothing as advised. Wash hands often. Keep track of the sick persons symptoms. Clean surfaces, fabrics, and laundry thoroughly. Keep other people away from the sick person. When to call your healthcare provider Call your healthcare provider: If youve recently traveled and have symptoms If you have been diagnosed with COVID-19 and your symptoms are worse To learn more To find out more about COVID-19, visit the CDC website at www.cdc.gov/coronavirus/2019-ncov/index.html. 7870-[address] [employer] [place] [address]. All rights reserved. This information is not intended as a substitute for professional medical care. Always follow your healthcare professional's instructions. This information has been adapted from [employer] Pending Studies at Discharge: No Stand-Alone Forms: [facility] [employer], Smoking Cessation Medications and DC Order Prescriptions: New dexamethasone 6 mg tablet 6 mg PO DAILY Qty: 4 RF: 0 guaifenesin 200 mg tablet 200 mg PO Q6H PRN (Reason: congestion) Qty: 30 RF: 0 Continued citalopram 40 mg tablet 40 mg PO DAILY RF: 0 buspirone 10 mg tablet 10 mg PO BID RF: 0 Discharge Orders: Discharge Order (Routine); Ordered 04/12/21 Ordered By: Mandeep Tatum/Other Patient Handouts: A1C Admission Data Admit Date/Time: 04/08/21 03:43 Attending Provider: Mandeep Mansfield Admit Provider: Tristen Lomax Primary Care Provider: Carroll Wyatt Other Providers: Tristen Lomax Other Interventions: Discharge Summary Assessment (RN) Last Done: 04/12/21 14:15
[2021-04-12] MEDS ORDERED: busPIRone 15 MG TAB PO SCH (19:00)
[2021-04-13 11:17] LABS: C Reactive Protein 22.92 mg/dl (0-0.5)
[2021-04-13 12:17] LABS: C Reactive Protein 5.99 mg/dl (0-0.5)
== END 2021-04-12 18:31 | disposition home or self-care (01) | DRG 177 ==
LOC: ED 01:13 → EDINP 03:43 → 2W 09:56
DX: I24.8 Other forms of acute ischemic heart disease; K21.9 Gastro-esophageal reflux disease without esophagitis; Z88.0 Allergy status to penicillin; Z68.29 Body mass index [BMI] 29.0-29.9, adult; E87.1 Hypo-osmolality and hyponatremia; E66.9 Obesity, unspecified; R79.89 Other specified abnormal findings of blood chemistry; E11.9 Type 2 diabetes mellitus without complications; Z87.74 Personal history of (corrected) congenital malformations of heart and circulatory system; G47.30 Sleep apnea, unspecified; U07.1 COVID-19; J12.82 Pneumonia due to coronavirus disease 2019; R09.02 Hypoxemia; E78.5 Hyperlipidemia, unspecified; F41.8 Other specified anxiety disorders